=== PATIENT | male | born 2000 | race Caucasian/White ===

== ENCOUNTER → 2023-07-31 13:13 | Outpatient (CLI) | payer OTHER, SELFPAY ==
--- NOTE | ~2023-07-31 | CT_ITS ---
EXAMINATION: CT sinus wo con DATE: 07/31/2023 13:28 INDICATION: Nasal polyps TECHNIQUE: Computed tomography (CT) of the paranasal sinuses was performed without intravenous contra st. The dose-length product (DLP) was 292.39 mGy-cm. Iterative reconstruction was used. COMPARISON: None FINDINGS: There is normal development and pneumatization of the paranasal sinuses. There is complete opacification of the sphenoid sinuses and posterior ethmoidal air cells. There is near complete opaci fication of the frontal sinuses and anterior ethmoidal air cells. There is moderate opacification of the left maxillary sinus and near complete opacification of the right maxillary sinus. There are 5 mm of rightward deviation of the nasal septum. The bilateral ostiomeatal complexes are occluded. Visual ized soft tissues are unremarkable. IMPRESSION: 1. Severe pansinusitis. Reviewed, dictated and finalized at location B. [facility] [employer] IMPRESSION: 1. Severe pansinusitis.
== END ==
PROVIDERS: PCP Otolaryngology; Visit Provider Otolaryngology
DX: J32.4 Chronic pansinusitis (principal)
CPT/HCPCS: 70486

== ENCOUNTER 2023-11-04 00:21 | Day surgery (SDC) | payer OTHER, SELFPAY ==
--- NOTE | 2023-10-28 09:16 | PC.NURSE ---
Report to the Outpatient Waiting Room, entrance under the green pavilion located off [facility], at time _0600_ on date _11/04/23_. Planned Procedure Time: _0730_. Time changes happen often and if your time is changed the preop area will call you the afternoon before. - You and your visitor will be asked to self-screen and do not enter if you have any COVID symptoms. - A mask is optional within the hospital at this time. Patients may have clear liquids (water, carbonated beverages, clear teas, apple juice) until 3 hours prior to surgery with a maximum of 20 ounces. - No food from midnight until time of surgery - Infants may have breast milk until 4 hours before surgery, infant formula 6 hours prior to surgery. - Children will be allowed to drink immediately following surgery. If applicable, please bring a bottle or sippy cup to assist with drinking. Juice, water, soda, and popsicles are readily available. For infants on formula, please bring formula the day of surgery. Pacifiers are allowed. Take the following medications with a SIP of water the morning of surgery: INHALER DO NOT STOP ANY OF YOUR OTHER PRESCRIPTION MEDICATIONS PRIOR TO SURGERY ?EXCEPT THE FOLLOWING Medications to discontinue per physician NONE Date to take last dose Please no make-up, nail english, hairspray, perfume, deodorant, or body powder the day of surgery. No jewelry (including any body piercings) or valuables the day of surgery, leave them at home. Please take a shower or bath the night before, or the morning of, surgery with an antibacterial soap. Wear comfortable, loose fitting clothing. Children are encouraged to wear pajamas. - Jewelry must be removed prior to entering the operating room. Rings and piercings that are not removed may be cut off. - The hospital will not accept responsibility for valuables. - Please leave all valuables, including medications, at home the day of surgery. If you are going home after surgery, a licensed lokie driver must drive you home. - NO public transportation without another adult if you receive anesthesia. - We recommend that an adult stay with you for 24 hours following discharge. - We also recommend that you do not drive, make important decision, drink alcoholic beverages, or take any drugs that were not prescribed by your health care provider for at least 24 hours after your discharge time. For Pediatric surgeries, we recommend two adults accompany the child home. Follow any additional instructions given to you from your surgeon. If you or anyone in your household have experienced Covid symptoms in the past week, please notify your surgeon or the nurse liaison at the phone number below for possible testing. Telephone instructions given to _PATIENT_and asked if any additional questions and then verbalized understanding. Patient advised to call surgeon office or pre surgery nurse liaison [phone] if any additional questions.
[2023-10-28 09:45] VITALS: BMI 23.0
[2023-11-04] VITALS (9 sets, daily range): BP systolic 107–150; BP diastolic 59–98; PULSE 61–85; RESP 10–16; TEMP 36.1–36.3; O2SAT 95–100
[2023-11-04] MEDS: ACETAMINOPHEN 500 MG TABLET 1000 MG PO (06:19)
--- NOTE | 2023-11-04 06:23 | SUR.PREOP ---
I questioned the patient putting his initials on the signature line of the consent. He and his dad say this is how he signs his name, that it is his signature.
[2023-11-04] MEDS: LACTATED RINGERS 1,000 ML 30 ML IV CONT ×2 (06:35→10:04)
--- NOTE | 2023-11-04 06:44 | WPDANESEPPF ---
Anes - Initial Pre Proc Eval Procedure: Operation Date: 11/04/23 07:30 Proposed Procedures p Fusion Guided Bilateral Frontal Sinusotomy, Bilateral Ethmoidectomy, Bilateral Sphenoidotomy, Bilateral Maxillary Antrostomy, Bilateral Turbinate Reduction, - Isaiah Perez MD s Septoplasty - Isaiah Perez MD Date/Time: 11/04/23 06:44 Surgeon: Isaiah Perez MD Pre Op Diagnosis: nasal polyps, chronic sinusitis Patient Data Age: 22 Gender: M Height: 1.83 m Weight: 80.9 kg Last Vital Signs Temp 36.3 C L 11/04/23 06:27 Pulse 65 11/04/23 06:27 Resp 16 11/04/23 06:27 BP 120/82 11/04/23 06:27 Pulse Ox 98 11/04/23 06:27 O2 Del Method Room Air 11/04/23 06:27 Allergies Allergy/AdvReac Type Severity Reaction Status Date / Time NSAIDS (Non-Steroidal Allergy Severe chest Verified 11/04/23 06:17 Anti-Inflamma tightness, shortness of breath Home Medications Medication Instructions Recorded Confirmed Type fluticasone fur. 200 mcg-umeclid 1 ea inhalation DAILY 10/28/23 11/04/23 History 62.5 mcg-vilant 25 mcg inhalat.powder (Trelegy Ellipta) Patient hx anesthesia problems: none Family hx anesthesia problems: none Results Review: All pre-operative results and documents have been reviewed as part of the pre-operative evaluation. [facility] Social History Social History Smoking status: Never smoker Alcohol intake: never Substance use: former Substance use type: other Other substance usage details: EIDBLE APPROX 1 YR AGO Living arrangements: with family Anes - Eval Final PreProcedure Day of Procedure 11/04/23 06:44 Patient weight: normal Heart: regular rate and rhythm Lungs: clear to auscultation and normal air movement Airway: Mallampati scale class II Neurological: alert and oriented Last oral intake: >/= 8 hours ASA classification: II Emergent: no Anesthetic plan: proceed Anesthesia type and monitoring: general ETT and standard monitoring Results Review: All pre-operative results and documents have been reviewed as part of the pre-operative evaluation. Informed Consent: The patient's anesthetic plan and its attendant risks and benefits were discussed with the patient/family/POA. Questions were solicited and answers provided to the satisfaction of the patient/family/POA.
--- NOTE | 2023-11-04 07:03 | PM.IMHP ---
H&P: HPI History of Present Illness Date/Time: 11/04/23 07:03 Chief Complaint: nasal polyps, chronic sinusitis Narrative: nasal polyps, chronic sinusitis Review of Systems Review of Systems: All systems reviewed & are unremarkable except as noted in HPI and below [facility] Social History Social History Smoking status: Never smoker Alcohol intake: never Substance use: former Substance use type: other Other substance usage details: EIDBLE APPROX 1 YR AGO Living arrangements: with family Meds Home Medications and Allergies Home Medications Medication Instructions Recorded Confirmed Type fluticasone fur. 200 mcg-umeclid 1 ea inhalation DAILY 10/28/23 11/04/23 History 62.5 mcg-vilant 25 mcg inhalat.powder (Trelegy Ellipta) Allergies Allergy/AdvReac Type Severity Reaction Status Date / Time NSAIDS (Non-Steroidal Allergy Severe chest Verified 11/04/23 06:17 Anti-Inflamma tightness, shortness of breath Vital Signs Vital Signs - 24 hr 11/04/23 06:27 Temperature 36.3 C L Pulse Rate 65 Respiratory Rate 16 Blood Pressure 120/82 Pulse Oximetry 98 Oxygen Delivery Room Air Exam Narrative: Bilateral extensive nasal polyps, rest of exam wnl Assessment and Plan Assessment and plan (1) Nasal polyposis: Code(s): J33.9 - Nasal polyp, unspecified Status: Acute Plan Angel has extensive nasal polyposis, deviated septum, here for comprehensive endoscopic sinus surgery and septoplasty/turbinoplasty. r/b/a reviewed, all questions answered and he agrees to proceed, refer to outpt H&P for further detail.
--- NOTE | 2023-11-04 07:05 | WPDHPUPDATE1 ---
History and Physical Update Update Date/Time: 11/04/23 07:05 History and Physical has been reviewed, including an updated exam of the patient. There are NO changes in the patient's condition. Risks, benefits, and alternatives have been discussed and questions answered. Patient agrees to proceed with procedure.
[2023-11-04] MEDS: LIDO 1%/EPINEPHRINE 1:100,000 50 ML VIAL INFILTRATE (07:47)
--- NOTE | 2023-11-04 10:09 | W.PM.PROC2 ---
Procedure Note - Detailed Date of Procedure 11/04/23 Pre-op Diagnosis nasal polyps, chronic sinusitis Post-op Diagnosis Same Procedure Performed Bilateral frontal sinusotomy, total ethmoidectomy, sphenoidotomy with tissue removal, maxillary antrostomy with tissue removal, septoplasty, turbinoplasty with image guidance Surgeon Isaiah Perez MD Anesthesia General Indications nasal polyps Findings Extensive polyp disease, significant inspissated mucous in bilateral maxillary and frontal sinuses. Bilateral middle turbinates resected. Nasopore and carcamo splints bilaterally Description of Procedure On the date of procedure the patient was met in the preoperative area and risk and benefits of the procedure reviewed with the patient as documented in the H&P and they elected to proceed with surgery. Patient was brought back to the operating room by the anesthesia team and underwent general endotracheal anesthesia. Once an adequate plane of anesthesia was obtained a timeout was performed to assure the patient identification the patient here to be performed were correct. They were.The patient was then prepped and draped in the normal fashion for endoscopic sinus surgery. The diffusion image guidance system was calibrated and used for the entire case. Afrin-soaked pledgets were placed in the nasal cavities bilaterally. The entire case was performed under endoscopic visualization. Nasal endoscopy was performed at the beginning of the case. The left side was narrowed due to septal deviation.? Thus, septoplasty was required.? A left hemitransfixion incision was made in the left caudal septum and a mucoperichondrial flap was elevated in the usual fashion. The flap was elevated under endoscopic visualization and the remainder of the case was performed with endoscopic assistance. Using a D-knife, an incision was made through the cartilaginous septum with care to preserve the appropriate caudal and dorsal ?L-strut? of cartilage. The cartilage was then disarticulated from the bony-cartilaginous junction and the deviated cartilage was removed. Further deviated bone and cartilage was removed from the maxillary crest and posterior bony septum with care to avoid injury to the mucoperichondrial flap using a combination of dissection and June forceps. Once this was completed, the hemitransfixion incision was closed using simple interrupted 4-0 chromic suture. A quilting stitch to reapproximate the mucoperichondrial flaps was then placed using 4-0 plain gut suture on a Jose needle. 1% lidocaine with 1:100,000 epinephrine was then injected into the root of the middle turbinate and lateral nasal wall. Attention was first directed towards the right side. Gross polyp disease filling the nasal passage, required removal with microdebrider extensively until middle turbinate tissue was visualized. The middle turbinate was medialized and the osteomeatal complex was identified with a steffi probe. Using a 90 degree backbiter, the uncinate process was reflected anteriorly and removed using a combination of sharp and powered dissection. The maxillary antrostomy was then created and widened by identifying the natural ostia and opening the sinus with straight cyril-cut forceps, backbiter, and microdebrider. Polyp tissue encountered was removed with microdebrider. The maxillary sinus was then copiously irrigated with thick mucous and polyp removed. Continuing with the microdebrider, the anterior ethmoid bulla was opened. Careful dissection was carried out posteriorly, through the basal lamella and posterior ethmoid cells until the sphenoid rostrum was identified. Polyps noted throughout. A Elvi suction bluntly identified the sphenoid os and the opening was widened with microdebrider and mushroom punch to 5mm. Using an image guided curved suction as well as J-curette, the posterior most ethmoid cell was identified and the ethmoids were bluntly fractured and dissected from posterior to anterior porsche
== END 2023-11-04 12:20 | disposition home or self-care (01) ==
PROVIDERS: Visit Provider Otolaryngology
PROC: (CPT 31257; principal; 2023-11-04 07:30)
PROC: (CPT 30520; 2023-11-04 07:30)
DX: J32.9 Chronic sinusitis, unspecified (principal); J33.9 Nasal polyp, unspecified; J33.8 Other polyp of sinus
CPT/HCPCS: 31257; 31267; 31276; 61782; 30520; 30140; 88305; 88311; A9270; J0330; J1100; J1170; J2250; J2405; J2704; J3010; J7050; J7120